=== PATIENT | female | born 1970 | race Asian ===

== ENCOUNTER 2019-04-08 16:00 | Emergency (ER) | payer OTHER ==
[~2019-04-08] VITALS: Ht 157.5 cm; Wt 57.6 kg
[2019-04-08 16:13] VITALS: Ht 157.5 cm; Wt 57.6 kg
[2019-04-08 18:29] VITALS: BP 102/63
== END 2019-04-08 18:29 | disposition home or self-care (01) ==
LOC: ED 16:00
DX: S30.0XXA Contusion of lower back and pelvis, initial encounter (principal); M79.651 Pain in right thigh; M25.551 Pain in right hip; X58.XXXA Exposure to other specified factors, initial encounter; Y93.89 Activity, other specified; Y92.89 Other specified places as the place of occurrence of the external cause; Y99.8 Other external cause status
CPT/HCPCS: J1100; J1885; Q0092

== ENCOUNTER 2019-07-28 15:17 | Emergency (ER) | payer BC ==
[~2019-07-28] VITALS: Ht 157.5 cm; Wt 54.0 kg
[2019-07-28 15:32] VITALS: BP 107/75; Ht 157.5 cm; Wt 54.0 kg
== END 2019-07-28 16:05 | disposition home or self-care (01) ==
LOC: ED 15:17
DX: S63.501A Unspecified sprain of right wrist, initial encounter (principal); X58.XXXA Exposure to other specified factors, initial encounter; Y93.89 Activity, other specified; Y92.89 Other specified places as the place of occurrence of the external cause; Y99.8 Other external cause status